=== PATIENT | female | born 1985 | race Two or more races ===

== ENCOUNTER 2017-03-18 20:19 | Emergency (ER) | payer BC, MEDICAID ==
[~2017-03-18] VITALS: Ht 160 cm; Wt 68.0 kg
[2017-03-18 20:20] VITALS: BP 131/86
[2017-03-18 21:03] LABS: Urine Bilirubin Negative (Negative); Urine Blood 2+ /uL (Negative); Urine Color Yellow (Yellow); Urine Glucose Normal (Normal); Urine Ketone Negative (Negative); Urine Mucus FEW (None Seen); Urine Nitrite Negative (Negative); Urine RBC 41 /hpf (0 - 4); Urine Squamous Epithelial Cell FEW /hpf (<5); Urine Urobilinogen Normal (Negative)
[2017-03-18] MEDS ORDERED: IBUPROFEN 600 MG TAB PO ONE (23:15)
[2017-03-18] MEDS ORDERED: BACLOFEN 10 MG TAB PO ONE (23:15)
== END 2017-03-18 23:28 | disposition home or self-care (01) ==
LOC: ER 20:23
DX: S46.812A Strain of other muscles, fascia and tendons at shoulder and upper arm level, left arm, initial encounter (principal); N39.0 Urinary tract infection, site not specified; V49.49XA Driver injured in collision with other motor vehicles in traffic accident, initial encounter; Y93.89 Activity, other specified; Y99.8 Other external cause status; Y92.410 Unspecified street and highway as the place of occurrence of the external cause
CPT/HCPCS: 72040; 81001; 81025